=== PATIENT | male | born 1990 | race Caucasian/White ===

== ENCOUNTER 2019-10-13 12:37 | Emergency (ER) | payer SELFPAY ==
[~2019-10-13] VITALS: Ht 180.3 cm; Wt 74.8 kg
[2019-10-13] MEDS ORDERED: FLONASE ALLERG9.9 ML NAS (14:24)
[2019-10-13] MEDS ORDERED: CLARITIN-D 121 EACH PO (14:24)
== END 2019-10-13 14:31 | disposition home or self-care (01) ==
LOC: ED 12:37
DX: H65.91 Unspecified nonsuppurative otitis media, right ear (principal); F17.200 Nicotine dependence, unspecified, uncomplicated